=== PATIENT | male | born 1985 ===

== ENCOUNTER 2018-05-15 02:54 | Emergency (ER) | payer SELFPAY ==
[2018-05-15 03:01] VITALS: BMI 34.9
--- NOTE | 2018-05-15 03:30 | ED PDOC ---
HPI: Psych/Substance Abuse Time Seen by Provider: 05/15/18 03:00 Chief Complaint (Nursing): Alcohol Ingestion Chief Complaint (Provider): Alcohol Ingestion ED Caveat: Intoxicated History/Exam Limitations: intoxication Modifying Factor(s): Alcohol Involuntary Hold By: Local Law Enforcement Additional Complaint(s): 32 y/o male brought to the ED under police arrest for alcohol intoxication. Patient is unable to provide history due to intoxication. Past Medical History Reviewed: Unable To Obtain Vital Signs: Last Vital Signs Temp 98.1 F 05/15/18 03:00 Pulse 93 H 05/15/18 03:00 Resp 18 05/15/18 03:00 BP 121/74 05/15/18 03:00 Pulse Ox 95 05/15/18 03:00 - Family History Family History: States: Unknown Family Hx - Allergies Allergies/Adverse Reactions: Allergies Allergy/AdvReac Type Severity Reaction Status Date / Time No Known Allergies Allergy Verified 05/15/18 03:00 Review of Systems Review Of Systems: ROS cannot be obtained secondary to pt's inabilty to answer questions. Physical Exam - Reviewed Nursing Documentation Reviewed: Yes Vital Signs Reviewed: Yes - Physical Exam Appears: Positive for: Well, Non-toxic, No Acute Distress Head Exam: Positive for: ATRAUMATIC, NORMAL INSPECTION, NORMOCEPHALIC Skin: Positive for: Normal Color, Warm, DRY Eye Exam: Positive for: EOMI, Normal appearance, PERRL ENT: Positive for: Normal ENT Inspection Neck: Positive for: Normal, Painless ROM Cardiovascular/Chest: Positive for: Regular Rate, Rhythm. Negative for: Murmur Respiratory: Positive for: Normal Breath Sounds. Negative for: Respiratory Distress Gastrointestinal/Abdominal: Positive for: Normal Exam, Soft. Negative for: Tenderness Back: Positive for: Normal Inspection Extremity: Positive for: Normal ROM. Negative for: Pedal Edema, Deformity Neurologic/Psych: Positive for: Mood/Affect (somnolent). Negative for: Alert, Oriented - Laboratory Results Result Diagrams: 05/15/18 03:32 05/15/18 03:32 - ECG O2 Sat by Pulse Oximetry: 95 (RA) Pulse Ox Interpretation: Normal Medical Decision Making Medical Decision Making: Time: 03:17 Initial Impression: 32 y/o with alcohol intoxication under police arrest Initial Plan: * Alcohol serum * CMP * Drug screen * Crisis evaluation * CBC w/ diff * UA 06:50 Patient was seen and cleared by crisis. Diagnosis is adjustment disorder and alcohol intoxication. Patient is stable for discharge to police custody. Scribe Attestation: Documented by Ted Dubois acting as a scribe for Akhil Albert MD. Provider Scribe Attestation: All medical record entries made by the Scribe were at my direction and personally dictated by me. I have reviewed the chart and agree that the record accurately reflects my personal performance of the history, physical exam, medical decision making, and the department course for this patient. I have also personally directed, reviewed, and agree with the discharge instructions and disposition. Disposition - Clinical Impression Clinical Impression: Adjustment disorder, Alcohol abuse with intoxication - Patient ED Disposition Is Patient to be Admitted: No - Disposition Disposition: Discharged/Transfer to Law Enforcement Disposition Time: 06:50 Condition: STABLE Additional Instructions: Patient is medically and psychiatrically stable for incarceration Instructions: Alcohol Use - When Is Drinking a Problem?, Adjustment Disorder Forms: [employer] ([place]ian)
[2018-05-15 03:46] LABS: BASO # 0.1 K/uL (0.0-0.2); BASO % 0.7 % (0.0-2.0); EOS # 0.7 K/uL (0.0-0.7); EOS % 8.3 % (0.0-4.0); HEMOGLOBIN 14.7 g/dL (12.0-18.0); LYMPH % 25.9 % (20.0-40.0); MEAN CELL VOLUME 81.3 fl (80.0-94.0); MEAN CORPUSCULAR HEMOGLOBIN 27.1 pg (27.0-31.0); MEAN CORPUSCULAR HGB CONC 33.3 g/dL (33.0-37.0); MEAN PLATELET VOLUME 8.2 fl (7.2-11.7); MONO # 0.7 K/uL (0.0-0.8); MONO % 8.4 % (0.0-10.0); NEUT # 4.5 K/uL (1.8-7.0); NEUT % 56.7 % (50.0-75.0); NRBC % 0.1 % (0.0-0.0); RBC 5.43 Mil/uL (4.40-5.90); RED CELL DISTRIBUTION WIDTH 15.5 % (11.5-14.5); WHITE BLOOD COUNT 7.9 K/uL (4.8-10.8)
[2018-05-15 03:52] LABS: ALB/GLOB RATIO 1.3 (1.0-2.1); ALBUMIN 4.3 g/dL (3.5-5.0); ALT/SGPT 49 U/L (21-72); AST/SGOT 27 U/L (17-59); BLOOD UREA NITROGEN 15 mg/dl (9-20); CALCIUM 9.2 mg/dL (8.4-10.2); GFR NON-AFRICAN AMERICAN > 60
[2018-05-15 04:37] LABS: URINE BILIRUBIN NEGATIVE (NEGATIVE); URINE BLOOD NEGATIVE (NEGATIVE); URINE CLARITY CLEAR (Clear); URINE COLOR STRAW (YELLOW); URINE GLUCOSE (UA) NEG (NEGATIVE)
[2018-05-15 04:38] LABS: URINE LEUKOCYTE ESTERASE NEG Leu/uL (Negative); URINE PROTEIN NEGATIVE (NEGATIVE); URINE UROBILINOGEN 0.2 mg/dL (0.2-1.0)
[2018-05-15 05:55] LABS: BARBITURATES, UR NEGATIVE (NEGATIVE); BENZODIAZEPINES, UR NEGATIVE (NEGATIVE); OPIATES, UR NEGATIVE (NEGATIVE); PHENCYCLIDINE, UR NEGATIVE (NEGATIVE)
[2018-05-15 07:04] VITALS: BP 126/70
[2018-05-15] MEDS ORDERED: Albuterol-Ipratrop 3 mg / 0.5 (3 ml) UD INH STA (07:07)
[2018-05-15] MEDS ORDERED: Albuterol-Ipratrop 3 mg / 0.5 (3 ml) UD ONE (07:08)
[2018-05-15 07:24] VITALS: PULSE 90; RESP 16; TEMP 98; O2SAT 97
== END 2018-05-15 07:22 ==
LOC: H.ER 02:54
DX: F10.129 Alcohol abuse with intoxication, unspecified (principal); F43.20 Adjustment disorder, unspecified
CPT/HCPCS: 80053; 81003; 82948; 85025; 99283; G0480